=== PATIENT | male | born 1970 | race Caucasian/White ===

== ENCOUNTER 2017-04-08 09:48 | Emergency (ER) | payer OTHER ==
[~2017-04-08] VITALS: Ht 172.7 cm; Wt 93.0 kg
[~2017-04-08 09:48] MED LIST: ELA10 PO; NORCO1 TA2 PO; ZES10 PO
[2017-04-08 09:49] VITALS: Ht 172.7 cm; Wt 93.0 kg
[2017-04-08 11:54] VITALS: BP 141/72
== END 2017-04-08 11:54 | disposition home or self-care (01) ==
LOC: ED 09:48
DX: S16.1XXA Strain of muscle, fascia and tendon at neck level, initial encounter (principal); S39.012A Strain of muscle, fascia and tendon of lower back, initial encounter; I10 Essential (primary) hypertension; Z88.0 Allergy status to penicillin; V43.02XA Car driver injured in collision with other type car in nontraffic accident, initial encounter; Y99.8 Other external cause status; Y93.89 Activity, other specified; Y92.488 Other paved roadways as the place of occurrence of the external cause

== ENCOUNTER 2017-04-14 11:23 | Emergency (ER) | payer OTHER ==
[2017-04-14 11:30] VITALS: BP 130/94
== END 2017-04-14 12:42 | disposition home or self-care (01) ==
LOC: ED 11:23
DX: R60.0 Localized edema (principal); S01.01XD Laceration without foreign body of scalp, subsequent encounter; F17.210 Nicotine dependence, cigarettes, uncomplicated; Z71.6 Tobacco abuse counseling; Z88.0 Allergy status to penicillin; X58.XXXD Exposure to other specified factors, subsequent encounter; I10 Essential (primary) hypertension
CPT/HCPCS: 99406; Q0092

== ENCOUNTER → 2018-07-14 | Outpatient (CLI) | payer OTHER | END | disposition home or self-care (01) | LOC: RD 18:17 | DX: M19.072 Primary osteoarthritis, left ankle and foot (principal) ==

== ENCOUNTER 2019-10-25 20:57 | Emergency (ER) | payer OTHER, SELFPAY ==
[~2019-10-25] VITALS: Ht 172.7 cm; Wt 99.8 kg
[2019-10-25 20:59] VITALS: Ht 172.7 cm; Wt 99.8 kg
[2019-10-25 21:47] VITALS: BP 142/99
== END 2019-10-25 21:47 | disposition home or self-care (01) ==
LOC: ED 20:57
DX: U07.1 COVID-19 (principal); B34.9 Viral infection, unspecified; Z88.0 Allergy status to penicillin; Z98.890 Other specified postprocedural states
CPT/HCPCS: U0003-CS

== ENCOUNTER 2019-11-09 23:56 | Emergency (ER) | payer OTHER, SELFPAY ==
[~2019-11-09] VITALS: Ht 172.7 cm; Wt 95.3 kg
[2019-11-10] VITALS: Ht 172.7 cm; Wt 95.3 kg
[2019-11-10 01:38] VITALS: BP 132/80
== END 2019-11-10 01:38 | disposition home or self-care (01) ==
LOC: ED 23:56
DX: U07.1 COVID-19 (principal); Z88.0 Allergy status to penicillin; Z98.890 Other specified postprocedural states
CPT/HCPCS: Q0092